=== PATIENT | female | born 1990 | race Two or more races ===

== ENCOUNTER → 2018-11-26 | Outpatient (REF) ==
--- NOTE | 2018-11-26 14:50 | RADIOLOGY IMAGING REPORT ---
FACILITY: [facility] - [place] PATIENT NAME: Isabelle Lombardo : 1990 MR: [id number] V: [id number] EXAM DATE: ORDERING PHYSICIAN: KAELYN LIN TECHNOLOGIST: Location: [facility] - [place] Patient: Isabelle Lombardo : 1990 Visit/Account:[id number] Date of Sevice: 11/26/2018 Exam type: KNEE 3 VIEWS BILATERAL History: Low back pain and bilateral knee pain Comparison: None. Findings: Three views of each knee demonstrates no evidence of acute fracture dislocation or significant arthri tic change. No lytic or blastic bone lesions are seen IMPRESSION: 1. No acute osteoarticular abnormality of the knees are seen Report Dictated By: Consuelo Donovan MD at 11/26/2018 2:44 PM Report E-Signed By: Consuelo Donovan MD at 11/26/2018 2:46 PM WSN:[email or web address]
--- NOTE | 2018-11-26 14:52 | RADIOLOGY IMAGING REPORT ---
FACILITY: [facility] PATIENT NAME: Isabelle Lombardo : 1990 MR: [id number] V: [id number] EXAM DATE: [id number] ORDERING PHYSICIAN: KAELYN LIN TECHNOLOGIST: Location: [facility] - [place] Patient: Isabelle Lombardo : 1990 Visit/Account:[id number] Date of Sevice: 11/26/2018 Exam type: L-SPINE 2 OR 3 VIEW History: Low back pain Comparison: None. Findings: AP and lateral views of the lumbar spine are submitted. There are six nonrib-bearing lumbar-type rudy tebral bodies present. There is unilateral sacralization of L6 on the left. There is no evidence of acute fractures or subluxations. There is mild narrowing of the L6 S1 disc space IMPRESSION: 1. Six nonrib-bearing lumbar-type vertebral bodies present with unilateral sacralization of L6 on th e left and mild disc space narrowing at this level Report Dictated By: Consuelo Donovan MD at 11/26/2018 2:46 PM Report E-Signed By: Consuelo Donovan MD at 11/26/2018 2:47 PM WSN:[email or web address]
== END ==
LOC: RAD 12:19
PROVIDERS: ATTEND Orthopaedic Surgery Orthopaedic Surgery of the Spine
DX: M54.5 Low back pain (principal); M25.561 Pain in right knee; M25.562 Pain in left knee
CPT/HCPCS: 72100

== ENCOUNTER → 2019-02-22 | Outpatient (REF) ==
--- NOTE | 2019-02-22 16:26 | RADIOLOGY IMAGING REPORT ---
FACILITY: [facility] - [place] PATIENT NAME: Isabelle Lombardo : 1990 MR: [id number] V: [id number] EXAM DATE: ORDERING PHYSICIAN: WESTLEY VALENTINE TECHNOLOGIST: Location: [facility] - [place] Patient: Isabelle Lombardo : 1990 Visit/Account:[id number] Date of Sevice: 02/22/2019 US VENOUS DOPPLER - UPPER EXT LT HISTORY: Left arm pain and swelling COMPARISON: None. FINDINGS: Grayscale compression, duplex and color Doppler interrogation of the left upper extremity veins was p erformed. Jugular vein - Negative. Subclavian vein - Negative. Axillary vein - Negative. Basilic vein - Negative. Cephalic vein - Negative. Brachial veins - Negative. IMPRESSION: Negative left upper extremity venous ultrasound Report Dictated By: Swapnil Doherty at 02/22/2019 4:12 PM Report E-Signed By: Swapnil Doherty at 02/22/2019 4:19 PM WSN:[id number]
== END ==
LOC: EDBD 01:23 → US 01:23
PROVIDERS: ATTEND Registered Nurse Psychiatric/Mental Health
DX: M79.602 Pain in left arm (principal); R22.32 Localized swelling, mass and lump, left upper limb